=== PATIENT | female | born 1985 | race Caucasian/White ===

== ENCOUNTER 2017-04-02 12:47 | Emergency (ER) | payer MEDICAID ==
[~2017-04-02] VITALS: Ht 167.6 cm; Wt 78.9 kg
--- NOTE | 2017-04-02 13:24 | Emergency Room Report ---
History of Present Illness General Chief Complaint: Complications Source: Patient Present Illness HPI 32-year-old female presents emergency department complaining of intermittent cramping with new onset spotting. Patient states cramping intermittently has been going on for 5 days. In spotting began this a.m. Patient is 40 weeks and 3 days . She is past due. Patient is . Patient states she knows it is not her mucous plug that she passed that last week. Patient states time between lower, cramping is one hour to 3 hours apart. She denies trauma or fall. She denies complications with previous pregnancies and she had previous vaginal deliveries. Patient denies pain however she states she would rate her cramping is 1/10 in severity. She states she just moved here from [place] and does not have MUSIC MINISTER she states her previous deliveries were performed at [facility]. Pt denies CP, SOB, Dizziness, SUMNER fevers, chills or other associated signs or symptoms. Pt denies relieving factors. Allergies: Coded Allergies: No Known Allergies (Unverified , 04/02/17) Patient History Past Medical History: see triage record, unable to obtain Now: Yes - 3 days past due Nursing Documentation-[facility] Past Medical History: No Stated History Review of Systems All Other Systems: negative except mentioned in HPI Physical Exam Vital Signs Date Time Temp Pulse Resp B/P Pulse Ox O2 Delivery O2 Flow Rate FiO2 04/02/17 13:05 98.2 85 16 129/79 100 Room Air Sp02 EP Interpretation: reviewed, normal General Appearance: no apparent distress, alert, GCS 15, non-toxic Head: normocephalic, atraumatic Eyes: bilateral eye PERRL, bilateral eye normal inspection ENT: hearing grossly normal, normal pharynx, no angioedema, normal voice Neck: full range of motion, supple/symm/no masses Respiratory: chest non-tender, lungs clear, normal breath sounds, speaking full sentences Cardiovascular #1: regular rate, rhythm, no edema Gastrointestinal: non tender, soft, no guarding, no rebound, other - Pt is obviously , no contractions palpated. Rectal: deferred Genitourinary: other - Pt declines. she wants to leave and go to appropriate L& D facility. Musculoskeletal: gait/station normal, normal range of motion Neurologic: alert, oriented x3, responsive, motor strength/tone normal, sensory intact, normal gait, speech normal Psychiatric: judgement/insight normal, memory normal, mood/affect normal Skin: normal color, no rash, warm/dry, well hydrated Medical Decision Making PA Attestation Dr. Azevedo is my supervising Physician whom patient management has been discussed with. Diagnostic Impression: Primary Impression: Spotting complicating in third trimester Additional Impression: Abdominal cramping affecting ER Course 32-year-old female presents emergency department complaining of intermittent cramping with new onset spotting. Patient states cramping intermittently has been going on for 5 days. In spotting began this a.m. Patient is 40 weeks and 3 days . She is past due. Patient is . Patient states she knows it is not her mucous plug that she passed that last week. Patient states time between lower, cramping is one hour to 3 hours apart. She denies trauma or fall. She denies complications with previous pregnancies and she had previous vaginal deliveries. Patient denies pain however she states she would rate her cramping is 1/10 in severity. She states she just moved here from [place] and does not have MUSIC MINISTER she states her previous deliveries were performed at [facility]. Pt denies CP, SOB, Dizziness, SUMNER fevers, chills or other associated signs or symptoms. Pt denies relieving factors. Ddx considered but are not limited to: , Inevitable Delivery, spotting during , Spontaneous , Vital signs: are WNL, pt. is afebrile Pelvic Exam: Declined by Pt. H&PE are most consistent with: Spotting during , Inevitable Delivery, Spontaneous ORDERS: - none pt. requests to leave AMA to go to L & D facility. ED INTERVENTIONS: - none pt. requests to leave AMA to go to L & D facility. DISPOSITION: Pt. Requests to transport her self to L & D Facility , d/w pt. that she would have to leave Against medical advice as we can not anticipate a medical emergency while en-route in her personal vehicle, that we highly encourage appropriate transport facilitated by ED staff. - At this time the patient is requesting to leave AGAINST MEDICAL ADVICE. I believe that this patient has the capacity to make decisions on Her own. I discussed with the patient the risks of leaving AMA. Some of these risks include delay in diagnosis and treatment, as well as worsening of symptoms, organ damage, and permanent disability or even to herself or her unborn child. After discussing these risks with the patient. She continues to express Her want to leave AGAINST MEDICAL ADVICE. I encouraged the patient to return at any time, and that she will be welcome here in the emergency department to continue medical management. Last Vital Signs Date Time Temp Pulse Resp B/P Pulse Ox O2 Delivery O2 Flow Rate FiO2 04/02/17 13:05 98.2 85 16 129/79 100 Room Air Disposition: AGAINST MEDICAL ADVICE Condition: Unknown Patient Instructions: Third Trimester of Additional Instructions: Follow up with OBGYN Facility immediately, you have elected to take your own personal transportation, thus signing AMA, if at anytime you change you decision return to the ED for continuation of your care/transfer. Return sooner to ED if new symptoms occur, or current symptoms become worse. - Please note that this Emergency Department Report was dictated using [employer] technology software, occasionally this can lead to erroneous entry secondary to interpretation by the dictation equipment. Ml Posey Apr 02, 2017 13:24
[2017-04-02 13:32] VITALS: BP 109/77
== END 2017-04-02 13:32 | disposition left against medical advice (07) ==
LOC: EMR 13:15
DX: O26.853 Spotting complicating pregnancy, third trimester (principal); O48.0 Post-term pregnancy; Z3A.40 40 weeks gestation of pregnancy
CPT/HCPCS: 99282